=== PATIENT | male | born 1975 | race Caucasian/White ===

== ENCOUNTER → 2020-09-29 | Outpatient (CLI) | payer OTHER | LOC: RAD 09:22 | PROVIDERS: ATTEND Orthopaedic Surgery | DX: M13.831 Other specified arthritis, right wrist (principal); M13.832 Other specified arthritis, left wrist; M13.851 Other specified arthritis, right hip; M13.861 Other specified arthritis, right knee; M13.862 Other specified arthritis, left knee; M13.871 Other specified arthritis, right ankle and foot; M13.872 Other specified arthritis, left ankle and foot ==